=== PATIENT | female | born 1940 | race Caucasian/White ===

== ENCOUNTER → 2017-08-23 | Outpatient (CLI) | payer OTHER | END | disposition home or self-care (01) | LOC: OIH 14:36 | PROVIDERS: ATTEND Internal Medicine Cardiovascular Disease | DX: Z13.6 Encounter for screening for cardiovascular disorders (principal); K44.9 Diaphragmatic hernia without obstruction or gangrene | CPT/HCPCS: 75571 ==

== ENCOUNTER 2023-05-01 07:31 | Emergency (ER) | payer MEDICARE ==
[~2023-05-01] VITALS: Ht 154.9 cm; Wt 68.0 kg
[2023-05-01 07:41] VITALS: BP 177/57; PULSE 64; RESP 16; O2SAT 98
== END 2023-05-01 08:48 | disposition home or self-care (01) ==
LOC: EDH 07:31
DX: S01.01XA Laceration without foreign body of scalp, initial encounter (principal); S13.4XXA Sprain of ligaments of cervical spine, initial encounter; I10 Essential (primary) hypertension; F41.9 Anxiety disorder, unspecified; Z90.49 Acquired absence of other specified parts of digestive tract; Z98.890 Other specified postprocedural states; Z88.0 Allergy status to penicillin; X58.XXXA Exposure to other specified factors, initial encounter; Y93.89 Activity, other specified; Y92.89 Other specified places as the place of occurrence of the external cause; Y99.8 Other external cause status
CPT/HCPCS: 12004; 70450; 72125

== ENCOUNTER 2023-05-09 09:14 | Emergency (ER) | payer MEDICARE ==
[~2023-05-09] VITALS: Ht 157.5 cm; Wt 70.3 kg
[2023-05-09 09:41] VITALS: BP 144/54; PULSE 80; RESP 16
== END 2023-05-09 10:28 | disposition home or self-care (01) ==
LOC: EDH 09:14
DX: S01.81XD Laceration without foreign body of other part of head, subsequent encounter (principal); F41.9 Anxiety disorder, unspecified; I10 Essential (primary) hypertension; Z90.49 Acquired absence of other specified parts of digestive tract; W18.39XD Other fall on same level, subsequent encounter
CPT/HCPCS: 99282